=== PATIENT | male | born 2000 | race Hispanic/Latino ===

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

== ENCOUNTER 2024-08-05 13:07 | Emergency (ER) | payer BC ==
[2024-08-05 13:57] LABS: SARS-CoV-2 Antigen CONTROL BLUE LINE VIS/BG OK; SARS-CoV-2 Antigen Rapid Res Negative (Negative)
--- NOTE | 2024-08-05 15:01 | EDPHYS ---
Physician Documentation [facility] Name: Taco Morris Age: 24 yrs Sex: Male : 2000 Arrival Date: 08/05/2024 Time: 13:07 Bed DX4 Private MD: ED Physician Christopher Gallardo HPI: 08/05 16:47 This 24 yrs old Male presents to ER via Ambulatory with complaints of Flu rt Symptoms. 16:47 Patient presents to the ED with cough, congestion for the past 3 days. Denies rt difficulty breathing. Denies other acute complaints at this time, symptoms are moderate in severity, no other aggravating or alleviating factors.. Historical: - Allergies: 13:27 cats; hb 13:27 Dairy; hb 13:27 shrimp; hb - Home Meds: 13:27 blood pressure medicine [Active]; cholesterol medicine [Active]; hb - PMHx: 13:27 Hyperlipidemia; Hypertension; hb - Immunization history:: Adult Immunizations up to date. - Infectious Disease History:: Denies. - Social history:: Smoking status: Patient denies any tobacco usage or history of. ROS: 16:48 Cardiovascular: Negative for chest pain, palpitations, and edema, MS/Extremity: rt Negative for injury and deformity, Skin: Negative for injury, rash, and discoloration, 16:48 Constitutional: Positive for body aches, fatigue, fever, malaise, 16:48 ENT: Positive for rhinorrhea, sore throat, 16:48 Respiratory: Positive for cough, Negative for shortness of breath, Exam: 16:48 Constitutional: This is a well developed, well nourished patient who is awake, alert, rt and in no acute distress. Head/Face: Normocephalic, atraumatic. Chest/axilla: Normal chest wall appearance and motion. Nontender with no deformity. No lesions are appreciated. Cardiovascular: Regular rate and rhythm with a normal S1 and S2. No gallops, murmurs, or rubs. Normal PMI, no JVD. No pulse deficits. Respiratory: Lungs have equal breath sounds bilaterally, clear to auscultation and percussion. No rales, rhonchi or wheezes noted. No increased work of breathing, no retractions or nasal flaring. Abdomen/GI: Soft, non-tender, with normal bowel sounds. No distension or tympany. No guarding or rebound. No evidence of tenderness throughout. Skin: Warm, dry with normal turgor. Normal color with no rashes, no lesions, and no evidence of cellulitis. MS/ Extremity: Pulses equal, no cyanosis. Neurovascular intact. Full, normal range of motion. Vital Signs: 13:24 BP 136 / 82; Pulse 85; Resp 16; Temp 98.5; Pulse Ox 99% on R/A; Pain 5/10; hb 13:24 Pain Scale: Adult hb MDM: 13:24 Medical Screening Exam initiated rt 16:48 Differential Diagnosis Flu, COVID, upper respiratory infection. Data reviewed: vital rt signs, nurses notes. Test considered but Not performed: X-ray: Clear breath sounds, stable vital signs, low suspicion for pneumonia, x-rays not indicated. Care significantly affected by the following chronic conditions: Hypertension. Counseling: I had a detailed discussion with the patient and/or guardian regarding the historical points, exam findings, and any diagnostic results supporting the discharge/admit diagnosis, lab results, the need for outpatient follow up. 08/05 13:27 Order name: Flu; Complete Time: 14:03 hb 08/05 13:27 Order name: SARS RAPID; Complete Time: 14:03 hb Administered Medications: No medications were administered Disposition Summary: 08/05/24 15:00 Discharge Ordered Notes: Location: Home rt Condition: Stable rt Diagnosis - Acute upper respiratory infection, unspecified rt Followup: rt - With: Private Physician - When: 2 - 3 days - Reason: Discharge Instructions: - Discharge Summary Sheet rt - Upper Respiratory Infection, Adult rt Forms: - Work release form rt - Medication Reconciliation Form rt - Antibiotic Education rt - Prescription Opioid Use rt - Patient Portal Instructions rt - Leadership Thank You Letter rt Signatures: Dispatcher [employer] Denise Blackburn RN RN Christopher Gallardo MD MD rt
--- NOTE | 2024-08-05 15:01 | ER ---
Nurse's Notes [facility] Name: Taco Morris Age: 24 yrs Sex: Male : 2000 Arrival Date: 08/05/2024 Time: 13:07 Bed DX4 Private MD: Diagnosis: Acute upper respiratory infection, unspecified Presentation: 08/05 13:24 Chief complaint: Headache, sinus congestion, cough, subjective fever, and body aches x hb 2 days. Family has the flu. Coronavirus screen: Client presents with at least one sign or symptom that may indicate coronavirus-19. Provider contacted for isolation considerations. Ebola Screen: No symptoms or risks identified at this time. Initial Sepsis Screen: Does the patient meet any 2 criteria? No. Patient's initial sepsis screen is negative. Does the patient have a suspected source of infection? No. Patient's initial sepsis screen is negative. Risk Assessment: Do you want to hurt yourself or someone else? Patient reports no desire to harm self or others. Onset of symptoms was August 04, 2024. 13:24 Method Of Arrival: Ambulatory hb 13:24 Acuity: MARI 4 hb Triage Assessment: 15:09 General: Appears in no apparent distress. Behavior is calm, cooperative, appropriate ap3 for age. Pain: Denies pain. Neuro: Level of Consciousness is awake, alert, obeys commands, Oriented to person, place, time, situation, Appropriate for age. Historical: - Allergies: 13:27 cats; hb 13:27 Dairy; hb 13:27 shrimp; hb - Home Meds: 13:27 blood pressure medicine [Active]; cholesterol medicine [Active]; hb - PMHx: 13:27 Hyperlipidemia; Hypertension; hb - Immunization history:: Adult Immunizations up to date. - Infectious Disease History:: Denies. - Social history:: Smoking status: Patient denies any tobacco usage or history of. Screenin:09 [facility] ED Fall Risk Assessment (Adult) History of falling in the last 3 months, ap3 including since admission No falls in past 3 months (0 pts) Confusion or Disorientation No (0 pts) Intoxicated or Sedated No (0 pts) Impaired Gait No (0 pts) Mobility Assist Device Used No (0 pt) Altered Elimination No (0 pt) Score/Fall Risk Level 0 - 2 = Low Risk Oriented to surroundings, Maintained a safe environment, Educated pt \T\ family on fall prevention, incl call for assistance when getting out of bed, Assessed \T\ reinforced patient's understanding of fall precautions, Hourly rounding (assess needs \T\ fall precautionary measures) done, Used ambulatory aids as needed (educated on \T\ assisted with), Used gait belt as appropriate. Abuse screen: Denies threats or abuse. Nutritional screening: No deficits noted. Tuberculosis screening: No symptoms or risk factors identified. Vital Signs: 13:24 BP 136 / 82; Pulse 85; Resp 16; Temp 98.5; Pulse Ox 99% on R/A; Pain 5/10; hb 13:24 Pain Scale: Adult hb ED Course: 13:09 Patient arrived in ED. im 13:10 Christopher Gallardo MD is Attending Physician. rt 13:27 Triage completed. hb 13:27 Arm band placed on. hb 15:00 Christopher Gallardo MD is Referral Physician. rt 15:10 Patient has correct armband on for positive identification. Provided Education on: ap3 discharge instructions . 15:10 No provider procedures requiring assistance completed. Patient did not have IV access ap3 during this emergency room visit. Administered Medications: No medications were administered Medication: 15:10 VIS not applicable for this client. ap3 Outcome: 15:00 Discharge ordered by . rt 15:10 Discharged to home ambulatory, ap3 15:10 Condition: good 15:10 Discharge instructions given to patient, Instructed on discharge instructions, follow up and referral plans. Demonstrated understanding of instructions, follow-up care, 15:10 Patient left the ED. ap3 Signatures: Denise Stone RN RN Umu Moya RN RN ap3 Christopher Gallardo MD MD rt Stephany Mathews
[2024-08-05 16:45] VITALS: BP 136/82; TEMP 98.5; O2SAT 99
== END 2024-08-05 15:10 | disposition home or self-care (01) ==
LOC: ER 13:07
DX: J06.9 Acute upper respiratory infection, unspecified (principal); Z11.52 Encounter for screening for COVID-19
CPT/HCPCS: 36415; 87804; 87811; 99282